=== PATIENT | female | born 1990 | race Caucasian/White ===

== ENCOUNTER 2017-12-06 15:25 | Emergency (ER) | payer SELFPAY ==
--- NOTE | 2017-12-06 15:41 | RAD ---
LEFT ANKLE 3 VIEWS: HISTORY: Trauma. Pain. Swelling. FINDINGS: No fracture. No cortical irregularity. Ankle mortise is intact. Joint spaces are preserved. IMPRESSION: No fracture. POS: [facility]
[2017-12-06] MEDS ORDERED: Ketorolac Tromethamine 30 MG/ML VIAL ONE (16:12)
== END 2017-12-06 16:56 | disposition home or self-care (01) ==
LOC: ERS 15:25
DX: S93.402A Sprain of unspecified ligament of left ankle, initial encounter (principal); G43.909 Migraine, unspecified, not intractable, without status migrainosus; Z87.891 Personal history of nicotine dependence; Z79.899 Other long term (current) drug therapy; W19.XXXA Unspecified fall, initial encounter; Y93.79 Activity, other specified sports and athletics
CPT/HCPCS: 96372; J1885